=== PATIENT | male | born 1955 | race Caucasian/White ===

== ENCOUNTER 2019-04-04 08:52 | Inpatient (IN) | payer OTHER ==
[~2019-04-04] VITALS: Ht 185.4 cm; Wt 65.3 kg
--- NOTE | 2019-04-04 09:09 | NUR ---
PT BIB [facility] FOR ABD PAIN SINCE YESTERDAY AND [facility] LAST NIGHT. PT WITH INCREASING WEAKNESS FOR 2 WEEKS. PT STARTED LISINOPRIL 2 WEEKS AGO. PT PLACED IN ROOM AND PLACED ON BP, CARDIAC AND CONT. PULSE OXIMETER. ASSESSMENT COMPLETED. PT A&OX4. AT BEDSIDE. AWAITING MD.
[2019-04-04] MEDS ORDERED: LISI-167 PO (09:11)
--- NOTE | 2019-04-04 09:23 | NUR ---
REPORT GIVEN TO CRISTINA BOB
[2019-04-04 10:05] LABS: BASOPHILS # (AUTO) 0.03 x10^3/uL (0-0.1); BASOPHILS % (AUTO) 0 % (0-1); EOSINOPHILS # (AUTO) 0.03 x10^3/uL (0-0.4); EOSINOPHILS % (AUTO) 0 % (1-7); LYMPHOCYTES # (AUTO) 1.13 x10^3/uL (1-3.4); LYMPHOCYTES % (AUTO) 13 % (22-44); MD NO; MEAN CORPUSCULAR HEMOGLOBIN 31.2 pg (27.5-34.5); MEAN CORPUSCULAR HGB CONC 34.3 g/dL (33.2-36.2); MEAN CORPUSCULAR VOLUME 90.8 fL (81-97); MEAN PLATELET VOLUME 7.4 fL (7.4-10.4); MONOCYTES # (AUTO) 0.77 x10^3/uL (0.2-0.8); MONOCYTES % (AUTO) 9 % (2-9); NEUTROPHILS # (AUTO) 6.73 x10^3/uL (1.8-6.8); NEUTROPHILS % (AUTO) 78 % (42-75); PLATELET COUNT 332 x10^3/uL (130-400); RED BLOOD COUNT 5.28 x10^6/uL (4.38-5.82); RED CELL DISTRIBUTION WIDTH 13.6 % (9.4-14.8)
[2019-04-04 10:17] LABS: ALANINE AMINOTRANSFERASE 24 U/L (12-78); ALBUMIN 3.7 g/dL (3.4-5.0); ANION GAP 9 mmol/L (5-15); CALCIUM 9.7 mg/dL (8.5-10.1); CHLORIDE 85 mmol/L (98-107); CREATININE 1.14 mg/dL (0.7-1.3)
[2019-04-04 10:19] LABS: ALKALINE PHOSPHATASE 110 U/L (45-117); BILIRUBIN,TOTAL 0.9 mg/dL (0.2-1.0); TOTAL PROTEIN 8.1 g/dL (6.4-8.2)
--- NOTE | 2019-04-04 10:25 | NUR ---
URINE SENT TO LAB. LABELED IN PATIENTS PRESENCE. PATIENT HAS RED WEEPY EYES LIKE PINK EYE. PATIENT IN BED, RAILS UP AWAITING ADMISSION
[2019-04-04] MEDS ORDERED: POTASSIUM CHLORIDE 20 MEQ TAB.ER.PRT ONE (10:59)
[2019-04-04 11:00] LABS: MICROSCOPIC INDICATED
[2019-04-04] MEDS ORDERED: POTASSIUM CHLORIDE 20 MEQ TAB.ER.PRT PO ONE (11:00)
[2019-04-04] MEDS ORDERED: SODIUM CHLORIDE 0.9%, 500ML IVBOLUS ONE (11:00)
[2019-04-04 11:01] LABS: CULTURE INDICATED? NO
--- NOTE | 2019-04-04 11:04 | NUR ---
REPOSITIONED PATIENT IN BED. HE IS AWAITING ADMISSION.
--- NOTE | 2019-04-04 11:09 | NUR ---
[facility]
[2019-04-04 12:30] VITALS: BP 207/106
[2019-04-04] MEDS: hydrALAzine 20 MG/ML, 1ML IV PRN (12:43)
[2019-04-04 12:50] VITALS: BP 207/106
[2019-04-04 13:45] VITALS: BP 180/91
[2019-04-04] MEDS ORDERED: ONDANSETRON 2MG/ML, 2ML IVPush PRN ×2 (14:00→16:00)
[2019-04-04] MEDS ORDERED: LORazepam 0.5MG TABLET PO PRN (16:00)
[2019-04-04] MEDS ORDERED: LORazepam 1MG TABLET PO PRN ×4 (16:00)
[2019-04-04] MEDS: NICOTINE 14MG/24 HR PATCH.TD24 TD SCH (16:00)
[2019-04-04] MEDS ORDERED: OXYcodone IR 5MG TABLET PO PRN (16:00)
[2019-04-04] MEDS ORDERED: hydrALAzine 20 MG/ML, 1ML IVPush PRN (16:00)
[2019-04-04] MEDS ORDERED: LORazepam 2 MG/ML, 1ML IV PRN ×5 (16:00)
[2019-04-04] MEDS ORDERED: morphine SULFATE 10 MG/ML, 1ML IVPush PRN (16:00)
[2019-04-04] MEDS ORDERED: POLYETHYLENE GLYCOL 17 GM PACKET PO PRN (16:00)
[2019-04-04] MEDS ORDERED: BISACODYL 10 MG SUPP PR PRN (16:00)
[2019-04-04] MEDS ORDERED: PROMETHAZINE 25 MG/ML, 1ML IM PRN (16:00)
[2019-04-04] MEDS ORDERED: ONDANSETRON ODT 4 MG PO PRN (16:00)
[2019-04-04] MEDS ORDERED: DOCUSATE 100 MG CAPSULE PO PRN (16:00)
[2019-04-04] MEDS ORDERED: POTASSIUM CHLORIDE 40 MEQ in SODIUM CHLORIDE 0.9% 500 ML IV ONE (16:30)
[2019-04-04 16:37] LABS: FREE T4 (FREE THYROXINE) 1.19 ng/dL (0.76-1.46); THYROID STIMULATING HORMONE 1.73 mIU/L (0.358-3.740)
[2019-04-04] MEDS: LACTATED RINGERS 1,000 ML IV SCH (16:38)
[2019-04-04] MEDS: PANTOPRAZOLE 40 MG IV IVPush SCH (16:44)
[2019-04-04] MEDS: MULTIVITAMIN 1 TABLET PO SCH (16:44)
[2019-04-04] MEDS: LOSARTAN 50MG TABLET PO SCH (16:44)
[2019-04-04] MEDS: THIAMINE 100MG TABLET PO SCH (16:44)
[2019-04-04] MEDS: FOLIC ACID 1 MG TABLET PO SCH (16:44)
[2019-04-04 16:49] LABS: HEMOGLOBIN A1C 5.2 % (4.2-6.3)
[2019-04-04] MEDS: CARVEDILOL 6.25 MG TABLET PO SCH (18:00)
[2019-04-04 20:03] VITALS: BP 163/91
[2019-04-05] VITALS (7 sets, daily range): BP systolic 152–195; BP diastolic 77–114
[2019-04-05] MEDS: LACTATED RINGERS 1,000 ML IV SCH (04:22)
[2019-04-05] MEDS: CARVEDILOL 6.25 MG TABLET PO SCH ×2 (04:22→18:07)
[2019-04-05] MEDS: PANTOPRAZOLE 40 MG IV IVPush SCH ×2 (04:22→16:53)
[2019-04-05 05:35] LABS: CHLORIDE 96 mmol/L (98-107)
[2019-04-05 05:40] LABS: BASOPHILS # (AUTO) 0.02 x10^3/uL (0-0.1); BASOPHILS % (AUTO) 0 % (0-1); EOSINOPHILS # (AUTO) 0.05 x10^3/uL (0-0.4); EOSINOPHILS % (AUTO) 1 % (1-7); LYMPHOCYTES # (AUTO) 1.87 x10^3/uL (1-3.4); LYMPHOCYTES % (AUTO) 23 % (22-44); MD NO; MEAN CORPUSCULAR HEMOGLOBIN 30.8 pg (27.5-34.5); MEAN CORPUSCULAR VOLUME 90.6 fL (81-97); MEAN PLATELET VOLUME 7.4 fL (7.4-10.4); MONOCYTES % (AUTO) 11 % (2-9); NEUTROPHILS # (AUTO) 5.37 x10^3/uL (1.8-6.8); NEUTROPHILS % (AUTO) 65 % (42-75); PLATELET COUNT 286 x10^3/uL (130-400); RED BLOOD COUNT 4.76 x10^6/uL (4.38-5.82); RED CELL DISTRIBUTION WIDTH 13.4 % (9.4-14.8)
[2019-04-05 05:41] LABS: ALANINE AMINOTRANSFERASE 17 U/L (12-78); ALBUMIN 3.2 g/dL (3.4-5.0); ALKALINE PHOSPHATASE 84 U/L (45-117); ANION GAP 9 mmol/L (5-15); BILIRUBIN,TOTAL 0.7 mg/dL (0.2-1.0); CALCIUM 8.9 mg/dL (8.5-10.1); CHOL/HDL RATIO 2.5; CHOLESTEROL, TOTAL 117 mg/dL (140-239); CREATININE 1.07 mg/dL (0.7-1.3); HDL CHOL % 40 % (26-37); HDL CHOLESTEROL (DIRECT) 47 mg/dL (40-60); LDL CHOLESTEROL,CALCULATED 55 mg/dL (54-169); LDL/HDL RATIO 1.2 (0.5-3.0); TOTAL PROTEIN 6.8 g/dL (6.4-8.2); TRIGLYCERIDES 76 mg/dL (50-200); VLDL CHOLESTEROL 15 mg/dL (0-25)
[2019-04-05] MEDS ORDERED: POTASSIUM CHLORIDE 40 MEQ in SODIUM CHLORIDE 0.9% 500 ML IV ONE (07:00)
[2019-04-05] MEDS: LOSARTAN 50MG TABLET PO SCH (08:01)
[2019-04-05] MEDS: FOLIC ACID 1 MG TABLET PO SCH (08:01)
[2019-04-05] MEDS: MULTIVITAMIN 1 TABLET PO SCH (08:01)
[2019-04-05] MEDS: THIAMINE 100MG TABLET PO SCH (08:01)
[2019-04-05] MEDS: NICOTINE 14MG/24 HR PATCH.TD24 TD SCH (11:38)
[2019-04-05 12:41] LABS: MICROSCOPIC NOT IND
[2019-04-05 12:44] LABS: CULTURE INDICATED? NO
[2019-04-05 12:49] LABS: CHLORIDE,URINE RANDOM 113 mmol/L; POTASSIUM,URINE RANDOM 36 mmol/L; SODIUM,URINE RANDOM 95 mmol/L
[2019-04-05] MEDS: hydrALAzine 20 MG/ML, 1ML IV PRN ×2 (13:06→23:05)
[2019-04-05 13:37] LABS: OSMOLALITY,URINE 411 mOsm/kg (500-850)
[2019-04-05] MEDS ORDERED: MAGNESIUM SULFATE 3 GM in SODIUM CHLORIDE 0.9% 100 ML IV ONE (15:30)
[2019-04-05] MEDS ORDERED: LOSARTAN 50MG TABLET PO ONE (15:30)
[2019-04-05] MEDS ORDERED: DEXTROSE 50%, 50ML SYRINGE IVPush PRN (15:30)
[2019-04-05] MEDS ORDERED: DEXTROSE 4 GM TAB.CHEW PO PRN (15:30)
[2019-04-05] MEDS ORDERED: GLUCAGON 1 MG IM PRN (15:30)
[2019-04-05] MEDS: LABETALOL 5MG/ML, 20ML IVPush PRN ×2 (15:31→18:14)
[2019-04-05] MEDS: POTASSIUM CHLORIDE 10 MEQ in D5%-0.9% NACL 1,000 ML IV SCH (16:53)
[2019-04-05] MEDS: SODIUM CHLORIDE FLUSH 10ML SYR IVF SCH (22:59)
[2019-04-06] VITALS (8 sets, daily range): BP systolic 131–179; BP diastolic 68–94
[2019-04-06] MEDS: POTASSIUM CHLORIDE 10 MEQ in D5%-0.9% NACL 1,000 ML IV SCH (00:34)
[2019-04-06] MEDS: PANTOPRAZOLE 40 MG IV IVPush SCH ×2 (04:19→16:41)
[2019-04-06 06:13] LABS: CHLORIDE 102 mmol/L (98-107)
[2019-04-06] MEDS: CARVEDILOL 6.25 MG TABLET PO SCH (06:16)
[2019-04-06 06:50] LABS: ALBUMIN 2.6 g/dL (3.4-5.0); ANION GAP 9 mmol/L (5-15); CALCIUM 8.2 mg/dL (8.5-10.1); CREATININE 0.87 mg/dL (0.7-1.3)
[2019-04-06] MEDS: THIAMINE 100MG TABLET PO SCH (08:33)
[2019-04-06] MEDS: MULTIVITAMIN 1 TABLET PO SCH (08:33)
[2019-04-06] MEDS: FOLIC ACID 1 MG TABLET PO SCH (08:34)
[2019-04-06] MEDS: LOSARTAN 50MG TABLET PO SCH (08:34)
[2019-04-06] MEDS: SODIUM CHLORIDE FLUSH 10ML SYR IVF SCH ×2 (08:34→21:00)
[2019-04-06] MEDS: SODIUM CHLORIDE 0.9% 1,000 ML IV SCH ×2 (08:35→21:44)
[2019-04-06] MEDS: NICOTINE 14MG/24 HR PATCH.TD24 TD SCH (12:33)
[2019-04-06] MEDS: hydrALAzine 20 MG/ML, 1ML IV PRN (16:42)
[2019-04-06] MEDS: CARVEDILOL 3.125 MG TABLET PO SCH (16:43)
[2019-04-07] VITALS (9 sets, daily range): BP systolic 123–183; BP diastolic 74–99
[2019-04-07] MEDS: PANTOPRAZOLE 40 MG IV IVPush SCH ×2 (05:41→15:14)
[2019-04-07] MEDS: CARVEDILOL 3.125 MG TABLET PO SCH ×2 (05:46→17:09)
[2019-04-07 06:43] LABS: ALBUMIN 2.8 g/dL (3.4-5.0); ANION GAP 7 mmol/L (5-15); CALCIUM 8.4 mg/dL (8.5-10.1); CHLORIDE 102 mmol/L (98-107)
[2019-04-07 06:44] LABS: CREATININE 0.99 mg/dL (0.7-1.3)
[2019-04-07] MEDS ORDERED: POTASSIUM CHLORIDE 20 MEQ TAB.ER.PRT PO ONE (07:30)
[2019-04-07] MEDS: MULTIVITAMIN 1 TABLET PO SCH (08:21)
[2019-04-07] MEDS: THIAMINE 100MG TABLET PO SCH (08:22)
[2019-04-07] MEDS: FOLIC ACID 1 MG TABLET PO SCH (08:22)
[2019-04-07] MEDS: LOSARTAN 50MG TABLET PO SCH (08:22)
[2019-04-07] MEDS: SODIUM CHLORIDE FLUSH 10ML SYR IVF SCH ×2 (08:22→20:22)
[2019-04-07] MEDS: hydrALAzine 20 MG/ML, 1ML IV PRN (10:01)
[2019-04-07] MEDS: NICOTINE 14MG/24 HR PATCH.TD24 TD SCH (15:14)
[2019-04-07 15:20] LABS: ALBUMIN 3.4 g/dL (3.4-5.0); ANION GAP 6 mmol/L (5-15); CALCIUM 8.8 mg/dL (8.5-10.1); CHLORIDE 101 mmol/L (98-107); CREATININE 1.12 mg/dL (0.7-1.3)
[2019-04-08 02:00] VITALS: BP 165/92
[2019-04-08 05:48] VITALS: BP 177/98
[2019-04-08] MEDS: CARVEDILOL 3.125 MG TABLET PO SCH (05:49)
[2019-04-08] MEDS ORDERED: PANTOPROZOLE 40MG TABLET PO SCH (06:00)
[2019-04-08 06:42] VITALS: BP 173/89
[2019-04-08 07:16] VITALS: BP 175/87
[2019-04-08 08:19] LABS: ALBUMIN 3.1 g/dL (3.4-5.0); ANION GAP 5 mmol/L (5-15); CALCIUM 8.9 mg/dL (8.5-10.1); CHLORIDE 104 mmol/L (98-107)
[2019-04-08 08:22] LABS: CREATININE 1.03 mg/dL (0.7-1.3)
[2019-04-08] MEDS: THIAMINE 100MG TABLET PO SCH (08:51)
[2019-04-08] MEDS: MULTIVITAMIN 1 TABLET PO SCH (08:51)
[2019-04-08] MEDS: FOLIC ACID 1 MG TABLET PO SCH (08:51)
[2019-04-08] MEDS: SODIUM CHLORIDE FLUSH 10ML SYR IVF SCH (08:51)
[2019-04-08] MEDS ORDERED: LOSARTAN 50MG TABLET PO SCH (09:00)
[2019-04-08 13:41] VITALS: BP 155/79
[2019-04-08] MEDS: NICOTINE 14MG/24 HR PATCH.TD24 TD SCH (15:00)
[2019-04-08] MEDS ORDERED: CARV3.1212 PO (15:10)
[2019-04-08] MEDS ORDERED: LOSA50TA14 PO (15:10)
[2019-04-08] MEDS ORDERED: THIA100T67 PO (15:10)
[2019-04-08] MEDS ORDERED: NICO-486 TD (15:10)
[2019-04-08] MEDS ORDERED: HYDR-3343 PO (15:10)
[2019-04-08] MEDS ORDERED: FOLI-17 PO (15:10)
== END 2019-04-08 16:45 | disposition home or self-care (01) | DRG 388 ==
LOC: ED 10:35 → EDIP 10:38 → 4EST 12:37 → DCLOUNGE 04-08 16:26
PROVIDERS: ADMIT Internal Medicine; ATTEND Internal Medicine
DX: K56.7 Ileus, unspecified (principal); K85.90 Acute pancreatitis without necrosis or infection, unspecified; E87.1 Hypo-osmolality and hyponatremia; E83.42 Hypomagnesemia; E87.6 Hypokalemia; F10.10 Alcohol abuse, uncomplicated; W18.30XA Fall on same level, unspecified, initial encounter; F17.210 Nicotine dependence, cigarettes, uncomplicated; I10 Essential (primary) hypertension; I16.0 Hypertensive urgency; K29.20 Alcoholic gastritis without bleeding; Z79.899 Other long term (current) drug therapy; Y93.89 Activity, other specified; Y92.89 Other specified places as the place of occurrence of the external cause
CPT/HCPCS: 36415; 74022; 99285; J7042; 76700; 80048; 80053; 80061; 81001; 81003; 82040; 82436; 82962; 83036; 83690; 83735; 83930; 83935; 84133; 84300; 84439; 84443; 85025; 93005; 93306; G0378; J3475; J3480; C9113; J0360; J7030; J7040; J7120

== ENCOUNTER 2019-04-21 16:50 | Inpatient (IN) | payer OTHER ==
[~2019-04-21] VITALS: Ht 185.4 cm; Wt 64.0 kg
[~2019-04-21 16:50] MED LIST: CARV3.1212 PO; FOLI-17 PO; HYDR-3343 PO; LISI-167 PO; LOSA50TA14 PO; NICO-486 TD; THIA100T67 PO
[2019-04-21] MEDS ORDERED: losartan (17:02)
--- NOTE | 2019-04-21 17:08 | NUR ---
pt bib [facility] for fever, chills and weakness starting yesterday. pt recently seen and admitted for pancreatits and htn. pt also states has an oral infection and is scheduled for oral surgery to remove teeth on 05/11/2019. no abx. iv established en route. pt connected to monitors. tachy 100s, htn 183/94, 86% ra, placed on 4lnc with recovery to 96%, temp 103.1. awaiting edmd assessment.
--- NOTE | 2019-04-21 17:25 | NUR ---
EDMD TO BS FOR ASSESSMENT.
[2019-04-21] MEDS ORDERED: IBUPROFEN 200 MG TABLET ONE (17:51)
[2019-04-21 17:55] LABS: MEAN CORPUSCULAR HEMOGLOBIN 30.2 pg (27.5-34.5); MEAN CORPUSCULAR HGB CONC 33.2 g/dL (33.2-36.2); MEAN CORPUSCULAR VOLUME 91.1 fL (81-97); MEAN PLATELET VOLUME 6.8 fL (7.4-10.4); PLATELET COUNT 210 x10^3/uL (130-400); RED BLOOD COUNT 4.81 x10^6/uL (4.38-5.82); RED CELL DISTRIBUTION WIDTH 14.1 % (9.4-14.8)
[2019-04-21] MEDS ORDERED: SODIUM CHLORIDE 0.9% 1,000ML IVBOLUS ONE (18:00)
[2019-04-21] MEDS ORDERED: IBUPROFEN 200 MG TABLET PO ONE (18:00)
--- NOTE | 2019-04-21 18:05 | NUR ---
pt resting in [facility]. vss. ua collected an sent. pt medicated per jan. lab draw complete. awaiting results. no needs expressed. call light wihtin mark.
[2019-04-21 18:09] LABS: ALANINE AMINOTRANSFERASE 161 U/L (12-78); ALBUMIN 3.5 g/dL (3.4-5.0); ANION GAP 14 mmol/L (5-15); CALCIUM 8.5 mg/dL (8.5-10.1); CHLORIDE 96 mmol/L (98-107); CREATININE 1.09 mg/dL (0.7-1.3)
[2019-04-21 18:11] LABS: ALKALINE PHOSPHATASE 218 U/L (45-117); BILIRUBIN,TOTAL 0.8 mg/dL (0.2-1.0); TOTAL PROTEIN 7.5 g/dL (6.4-8.2)
[2019-04-21 18:25] LABS: CULTURE INDICATED? YES; MICROSCOPIC INDICATED
[2019-04-21] MEDS ORDERED: SODIUM CHLORIDE FLUSH 10ML SYR IVF ONE (18:30)
[2019-04-21 18:49] LABS: MD YES
[2019-04-21 18:52] LABS: BAND#(MANUAL) 0.51 x10^3/uL; BANDS%(MANUAL) 10 % (0-7); EOS#(MANUAL) 0.05 x10^3/uL (0.0-0.4); EOS% (MANUAL) 1 % (1-7); LYMPH#(MANUAL) 0.46 x10^3/uL (1-3.4); LYMPHS% (MANUAL) 9 % (22-44); SEG#(MANUAL) 3.83 x10^3/uL (1.8-6.8); SEGS% (MANUAL) 75 % (42-75)
[2019-04-21 18:55] LABS: <PLATELET ESTIMATE> ADEQUATE; <PLT MORPHOLOGY> NORMAL PLT MORPH; <RBC MORPHOLOGY> NORMAL
[2019-04-21 18:56] LABS: MONOS#(MANUAL) 0.15 x10^3/uL (0.3-2.7); MONOS% (MANUAL) 3 % (2-9)
[2019-04-21 18:57] LABS: OTHER CELLS % (MANUAL) 2 % (0-0)
[2019-04-21] MEDS ORDERED: CEFTRIAXONE PMX 1GM/50ML 50 ML IVPB ONE (19:00)
--- NOTE | 2019-04-21 19:03 | NUR ---
report received from cintia haas.
--- NOTE | 2019-04-21 19:08 | NUR ---
REPORT TO LISBETH LOPEZ. PER PT'S AT , PT HAS NOT HAD 1700 HOME HTN MEDICATIONS. EDMD NOTIFIED. HTN MEDICATION ORDERS RECEIVED. NO OTHER REQUESTS AT THIS TIME.
[2019-04-21] MEDS ORDERED: hydrALAzine 20 MG/ML, 1ML ONE (19:11)
[2019-04-21] MEDS ORDERED: CEFTRIAXONE PMX 1GM/50ML 50 ML ONE (19:19)
--- NOTE | 2019-04-21 19:29 | NUR ---
pt medicated per emar. pt tolerated well. pt's aox4. resps even and unlabored.
[2019-04-21] MEDS ORDERED: hydrALAzine 20 MG/ML, 1ML IV ONE (19:30)
--- NOTE | 2019-04-21 19:48 | NUR ---
pt's bp is 137/72 at this time.
[2019-04-21] MEDS ORDERED: SODIUM CHLORIDE 0.9% 1,000 ML IV ONE (19:49)
[2019-04-21] MEDS ORDERED: ONDANSETRON ODT 4 MG PO PRN (20:00)
[2019-04-21] MEDS ORDERED: ACETAMINOPHEN 325 MG TABLET PO PRN (20:00)
[2019-04-21] MEDS ORDERED: VANCOMYCIN PER PHARMACY MC PRN (20:00)
[2019-04-21] MEDS ORDERED: POLYETHYLENE GLYCOL 17 GM PACKET PO PRN (20:00)
[2019-04-21] MEDS ORDERED: BISACODYL 10 MG SUPP PR PRN (20:00)
[2019-04-21] MEDS ORDERED: SODIUM CHLORIDE FLUSH 10ML SYR IVF PRN (20:00)
[2019-04-21] MEDS ORDERED: OMNIPAQUE 350 MG/ML, 100ML BOTTLE ONE (20:13)
--- NOTE | 2019-04-21 20:19 | NUR ---
REPORT GIVEN TO LUIGI BOB. ALL QUESTIONS ANSWERED.
[2019-04-21] MEDS ORDERED: PHARMACOKINETIC MONITORING MC PRN (21:00)
[2019-04-21] MEDS ORDERED: PHARMACOKINETIC CONSULTATION MC ONE (21:00)
[2019-04-21] MEDS ORDERED: VANCOMYCIN 1,300 MG in SODIUM CHLORIDE 0.9% 250 ML IV SCH (21:00)
[2019-04-21 22:13] VITALS: BP 126/68
[2019-04-21] MEDS: LOSARTAN 50MG TABLET PO SCH (22:55)
[2019-04-21] MEDS: PIPERACILLIN/TAZO/PMX 3.375GM 50 ML IV SCH (22:55)
[2019-04-21] MEDS: NICOTINE 21 MG/24 HR PATCH.TD24 TD SCH (22:56)
[2019-04-21] MEDS: HEPARIN 5,000 UNITS/ML, 1ML SQ SCH (22:56)
[2019-04-21] MEDS: NS + 20MEQ KCL 1,000 ML IV SCH (23:11)
[2019-04-22 03:41] VITALS: BP 119/72
[2019-04-22 05:07] LABS: MEAN CORPUSCULAR HEMOGLOBIN 30.3 pg (27.5-34.5); MEAN CORPUSCULAR HGB CONC 33.3 g/dL (33.2-36.2); MEAN CORPUSCULAR VOLUME 90.8 fL (81-97); PLATELET COUNT 189 x10^3/uL (130-400); RED BLOOD COUNT 4.16 x10^6/uL (4.38-5.82); RED CELL DISTRIBUTION WIDTH 14.1 % (9.4-14.8)
[2019-04-22 05:13] LABS: CHLORIDE 101 mmol/L (98-107)
[2019-04-22] MEDS: NS + 20MEQ KCL 1,000 ML IV SCH ×3 (05:14→22:53)
[2019-04-22] MEDS: PIPERACILLIN/TAZO/PMX 3.375GM 50 ML IV SCH ×4 (05:14→22:53)
[2019-04-22] MEDS: CARVEDILOL 3.125 MG TABLET PO SCH ×2 (05:14→17:35)
[2019-04-22 05:21] LABS: ALANINE AMINOTRANSFERASE 124 U/L (12-78); ALBUMIN 2.8 g/dL (3.4-5.0); ALKALINE PHOSPHATASE 189 U/L (45-117); ANION GAP 7 mmol/L (5-15); BILIRUBIN,TOTAL 0.9 mg/dL (0.2-1.0); CALCIUM 7.7 mg/dL (8.5-10.1); CREATININE 1.02 mg/dL (0.7-1.3); TOTAL PROTEIN 6.2 g/dL (6.4-8.2)
[2019-04-22 05:40] LABS: MD YES
[2019-04-22 05:42] LABS: BAND#(MANUAL) 0.31 x10^3/uL; BANDS%(MANUAL) 8 % (0-7); EOS#(MANUAL) 0.04 x10^3/uL (0.0-0.4); EOS% (MANUAL) 1 % (1-7); LYMPH#(MANUAL) 0.39 x10^3/uL (1-3.4); LYMPHS% (MANUAL) 10 % (22-44); MONOS% (MANUAL) 5 % (2-9); SEG#(MANUAL) 2.96 x10^3/uL (1.8-6.8); SEGS% (MANUAL) 76 % (42-75)
[2019-04-22 05:43] LABS: <PLATELET ESTIMATE> ADEQUATE; <PLT MORPHOLOGY> NORMAL PLT MORPH; <RBC MORPHOLOGY> NORMAL
[2019-04-22] MEDS: HEPARIN 5,000 UNITS/ML, 1ML SQ SCH ×3 (06:43→23:07)
[2019-04-22] MEDS ORDERED: POTASSIUM CHLORIDE 20 MEQ TAB.ER.PRT PO ONE (07:00)
[2019-04-22 08:21] VITALS: BP 125/75
[2019-04-22] MEDS: SENNA/DOCUSATE TABLET PO SCH (08:23)
[2019-04-22] MEDS: FOLIC ACID 1 MG TABLET PO SCH (08:23)
[2019-04-22] MEDS: THIAMINE 100MG TABLET PO SCH (08:23)
[2019-04-22] MEDS: LOSARTAN 50MG TABLET PO SCH ×2 (08:23→20:05)
[2019-04-22 14:00] VITALS: BP 159/78
[2019-04-22] MEDS ORDERED: VANCOMYCIN 1,200 MG in SODIUM CHLORIDE 0.9% 250 ML IV SCH (15:00)
[2019-04-22 17:33] VITALS: BP 165/94
[2019-04-22] MEDS: NICOTINE 21 MG/24 HR PATCH.TD24 TD SCH (20:06)
[2019-04-22 20:21] VITALS: BP_SYST 177; BP_SYST 178; BP_DIAS 93; BP_DIAS 96
[2019-04-23] VITALS (10 sets, daily range): BP systolic 143–198; BP diastolic 82–102
[2019-04-23] MEDS: PIPERACILLIN/TAZO/PMX 3.375GM 50 ML IV SCH ×4 (05:04→23:45)
[2019-04-23 05:14] LABS: BASOPHILS # (AUTO) 0.01 x10^3/uL (0-0.1); BASOPHILS % (AUTO) 0 % (0-1); EOSINOPHILS # (AUTO) 0.08 x10^3/uL (0-0.4); EOSINOPHILS % (AUTO) 2 % (1-7); LYMPHOCYTES # (AUTO) 0.76 x10^3/uL (1-3.4); LYMPHOCYTES % (AUTO) 14 % (22-44); MD NO; MEAN CORPUSCULAR HEMOGLOBIN 29.9 pg (27.5-34.5); MEAN CORPUSCULAR HGB CONC 32.9 g/dL (33.2-36.2); MEAN CORPUSCULAR VOLUME 90.9 fL (81-97); MEAN PLATELET VOLUME 7.2 fL (7.4-10.4); MONOCYTES % (AUTO) 11 % (2-9); NEUTROPHILS # (AUTO) 3.93 x10^3/uL (1.8-6.8); NEUTROPHILS % (AUTO) 73 % (42-75); PLATELET COUNT 233 x10^3/uL (130-400); RED BLOOD COUNT 4.52 x10^6/uL (4.38-5.82); RED CELL DISTRIBUTION WIDTH 14.1 % (9.4-14.8)
[2019-04-23 05:16] LABS: ALANINE AMINOTRANSFERASE 103 U/L (12-78); ALBUMIN 2.9 g/dL (3.4-5.0); ANION GAP 8 mmol/L (5-15); CALCIUM 8.3 mg/dL (8.5-10.1); CHLORIDE 104 mmol/L (98-107); CREATININE 0.91 mg/dL (0.7-1.3)
[2019-04-23 05:19] LABS: ALKALINE PHOSPHATASE 207 U/L (45-117); BILIRUBIN,TOTAL 1.2 mg/dL (0.2-1.0); TOTAL PROTEIN 6.6 g/dL (6.4-8.2)
[2019-04-23] MEDS: CARVEDILOL 3.125 MG TABLET PO SCH (06:26)
[2019-04-23] MEDS: NS + 20MEQ KCL 1,000 ML IV SCH (06:26)
[2019-04-23] MEDS: LOSARTAN 50MG TABLET PO SCH ×2 (08:01→20:51)
[2019-04-23] MEDS: THIAMINE 100MG TABLET PO SCH (08:01)
[2019-04-23] MEDS: FOLIC ACID 1 MG TABLET PO SCH (08:02)
[2019-04-23] MEDS: SENNA/DOCUSATE TABLET PO SCH (08:02)
[2019-04-23] MEDS: HEPARIN 5,000 UNITS/ML, 1ML SQ SCH ×3 (08:02→23:00)
[2019-04-23] MEDS: hydrALAzine 20 MG/ML, 1ML IV PRN ×2 (09:25→16:28)
[2019-04-23] MEDS ORDERED: AMLODIPINE 5 MG TABLET PO SCH (15:30)
[2019-04-23] MEDS: CARVEDILOL 6.25 MG TABLET PO SCH (17:32)
[2019-04-23] MEDS ORDERED: OMNIPAQUE 350 MG/ML, 100ML BOTTLE ONE (17:42)
[2019-04-23] MEDS ORDERED: CARVEDILOL 3.125 MG TABLET PO SCH (18:00)
[2019-04-23] MEDS ORDERED: LORazepam 2 MG/ML, 1ML IV PRN ×5 (20:00)
[2019-04-23] MEDS ORDERED: LORazepam 0.5MG TABLET PO PRN (20:00)
[2019-04-23] MEDS ORDERED: LORazepam 1MG TABLET PO PRN ×4 (20:00)
[2019-04-23] MEDS: NICOTINE 21 MG/24 HR PATCH.TD24 TD SCH (20:52)
[2019-04-24 00:30] VITALS: BP 148/80
[2019-04-24 05:13] LABS: MEAN CORPUSCULAR HEMOGLOBIN 30.3 pg (27.5-34.5); MEAN CORPUSCULAR HGB CONC 33.5 g/dL (33.2-36.2); MEAN CORPUSCULAR VOLUME 90.6 fL (81-97); MEAN PLATELET VOLUME 7.7 fL (7.4-10.4); PLATELET COUNT 234 x10^3/uL (130-400); RED BLOOD COUNT 4.48 x10^6/uL (4.38-5.82); RED CELL DISTRIBUTION WIDTH 14.1 % (9.4-14.8)
[2019-04-24 05:14] LABS: ALBUMIN 2.6 g/dL (3.4-5.0); ANION GAP 9 mmol/L (5-15); CALCIUM 8.1 mg/dL (8.5-10.1); CHLORIDE 100 mmol/L (98-107)
[2019-04-24 05:20] LABS: ALANINE AMINOTRANSFERASE 74 U/L (12-78); ALKALINE PHOSPHATASE 197 U/L (45-117); TOTAL PROTEIN 6.5 g/dL (6.4-8.2)
[2019-04-24] MEDS: PIPERACILLIN/TAZO/PMX 3.375GM 50 ML IV SCH ×4 (05:33→23:22)
[2019-04-24] MEDS: CARVEDILOL 6.25 MG TABLET PO SCH ×2 (06:00→17:20)
[2019-04-24 06:14] LABS: MD YES
[2019-04-24 06:17] LABS: <PLATELET ESTIMATE> ADEQUATE; <PLT MORPHOLOGY> NORMAL PLT MORPH; <RBC MORPHOLOGY> NORMAL; BANDS%(MANUAL) 6 % (0-7); EOS#(MANUAL) 0.08 x10^3/uL (0.0-0.4); EOS% (MANUAL) 1 % (1-7); LYMPH#(MANUAL) 0.33 x10^3/uL (1-3.4); LYMPHS% (MANUAL) 4 % (22-44); MONOS#(MANUAL) 0.33 x10^3/uL (0.3-2.7); MONOS% (MANUAL) 4 % (2-9); SEG#(MANUAL) 7.06 x10^3/uL (1.8-6.8); SEGS% (MANUAL) 85 % (42-75)
[2019-04-24 06:56] VITALS: BP 168/75
[2019-04-24] MEDS: HEPARIN 5,000 UNITS/ML, 1ML SQ SCH ×3 (07:00→20:36)
[2019-04-24] MEDS: SENNA/DOCUSATE TABLET PO SCH (09:00)
[2019-04-24] MEDS ORDERED: SINCALIDE (KINEVAC) 5 MCG ONE (09:11)
[2019-04-24] MEDS ORDERED: POTASSIUM CHLORIDE 20 MEQ TAB.ER.PRT PO ONE (09:30)
[2019-04-24] MEDS: LOSARTAN 50MG TABLET PO SCH ×2 (11:31→20:36)
[2019-04-24] MEDS: THIAMINE 100MG TABLET PO SCH (11:31)
[2019-04-24] MEDS: MULTIVITAMINS/MINERALS TABLET PO SCH (11:31)
[2019-04-24] MEDS: FOLIC ACID 1 MG TABLET PO SCH (11:32)
[2019-04-24 13:19] VITALS: BP 127/80
[2019-04-24 19:45] VITALS: BP 117/65
[2019-04-24] MEDS: NICOTINE 21 MG/24 HR PATCH.TD24 TD SCH (20:36)
[2019-04-25 01:45] VITALS: BP 151/70
[2019-04-25 05:04] LABS: MEAN CORPUSCULAR HEMOGLOBIN 30.2 pg (27.5-34.5); MEAN CORPUSCULAR HGB CONC 33.6 g/dL (33.2-36.2); MEAN CORPUSCULAR VOLUME 89.9 fL (81-97); MEAN PLATELET VOLUME 7.8 fL (7.4-10.4); PLATELET COUNT 234 x10^3/uL (130-400); RED BLOOD COUNT 4.19 x10^6/uL (4.38-5.82); RED CELL DISTRIBUTION WIDTH 14.3 % (9.4-14.8)
[2019-04-25 05:18] LABS: ALBUMIN 2.5 g/dL (3.4-5.0); ANION GAP 11 mmol/L (5-15); CALCIUM 8.2 mg/dL (8.5-10.1); CHLORIDE 102 mmol/L (98-107)
[2019-04-25 05:22] LABS: ALANINE AMINOTRANSFERASE 68 U/L (12-78); ALKALINE PHOSPHATASE 182 U/L (45-117); BILIRUBIN,TOTAL 1.5 mg/dL (0.2-1.0); CREATININE 1.13 mg/dL (0.7-1.3); TOTAL PROTEIN 6.4 g/dL (6.4-8.2)
[2019-04-25] MEDS: CARVEDILOL 6.25 MG TABLET PO SCH ×2 (05:29→17:02)
[2019-04-25] MEDS: HEPARIN 5,000 UNITS/ML, 1ML SQ SCH ×3 (05:30→21:36)
[2019-04-25] MEDS: PIPERACILLIN/TAZO/PMX 3.375GM 50 ML IV SCH ×3 (05:30→17:02)
[2019-04-25 05:58] LABS: MD YES
[2019-04-25 06:00] LABS: <PLATELET ESTIMATE> ADEQUATE; <PLT MORPHOLOGY> NORMAL PLT MORPH; <RBC MORPHOLOGY> NORMAL; BAND#(MANUAL) 0.69 x10^3/uL; BANDS%(MANUAL) 7 % (0-7); LYMPHS% (MANUAL) 3 % (22-44); MONOS#(MANUAL) 0.59 x10^3/uL (0.3-2.7); MONOS% (MANUAL) 6 % (2-9); SEG#(MANUAL) 8.32 x10^3/uL (1.8-6.8); SEGS% (MANUAL) 84 % (42-75)
[2019-04-25 06:03] LABS: TOXIC GRAN 1+
[2019-04-25 07:00] VITALS: BP 125/73
[2019-04-25] MEDS ORDERED: POTASSIUM CHLORIDE 20 MEQ TAB.ER.PRT PO ONE ×2 (07:30→17:30)
[2019-04-25] MEDS: AMOXICILLIN/CLAV 875-125MG TABLET PO SCH ×2 (08:33→20:09)
[2019-04-25] MEDS: LOSARTAN 50MG TABLET PO SCH ×2 (08:34→20:09)
[2019-04-25] MEDS: FOLIC ACID 1 MG TABLET PO SCH (08:34)
[2019-04-25] MEDS: THIAMINE 100MG TABLET PO SCH (08:34)
[2019-04-25] MEDS: MULTIVITAMINS/MINERALS TABLET PO SCH (08:34)
[2019-04-25] MEDS: SENNA/DOCUSATE TABLET PO SCH (08:54)
[2019-04-25] MEDS ORDERED: MAGNESIUM SULFATE PMX 2GM/50ML 50 ML IV ONE (09:00)
[2019-04-25 12:53] VITALS: BP 114/65
[2019-04-25 19:46] VITALS: BP 115/64
[2019-04-25] MEDS: NICOTINE 21 MG/24 HR PATCH.TD24 TD SCH (20:08)
[2019-04-26 01:18] VITALS: BP 151/71
[2019-04-26] MEDS: HEPARIN 5,000 UNITS/ML, 1ML SQ SCH (05:22)
[2019-04-26] MEDS: CARVEDILOL 6.25 MG TABLET PO SCH (05:22)
[2019-04-26 05:23] LABS: CHLORIDE 103 mmol/L (98-107)
[2019-04-26 05:35] LABS: ALANINE AMINOTRANSFERASE 71 U/L (12-78); ALBUMIN 2.2 g/dL (3.4-5.0); ALKALINE PHOSPHATASE 159 U/L (45-117); ANION GAP 7 mmol/L (5-15); BILIRUBIN,TOTAL 1.3 mg/dL (0.2-1.0); CALCIUM 8.1 mg/dL (8.5-10.1); CREATININE 1.05 mg/dL (0.7-1.3)
[2019-04-26 07:00] VITALS: BP 153/78
[2019-04-26] MEDS: AMOXICILLIN/CLAV 875-125MG TABLET PO SCH (08:05)
[2019-04-26] MEDS: LOSARTAN 50MG TABLET PO SCH (08:05)
[2019-04-26] MEDS: MULTIVITAMINS/MINERALS TABLET PO SCH (08:05)
[2019-04-26] MEDS: THIAMINE 100MG TABLET PO SCH (08:06)
[2019-04-26] MEDS: FOLIC ACID 1 MG TABLET PO SCH (08:06)
[2019-04-26] MEDS: SENNA/DOCUSATE TABLET PO SCH (08:06)
[2019-04-26] MEDS ORDERED: MAGNESIUM OXIDE 400 MG TABLET PO SCH (09:00)
[2019-04-26] MEDS ORDERED: ONDA4TAB13 PO (11:52)
[2019-04-26] MEDS ORDERED: MAGN400T50 PO (11:52)
[2019-04-26] MEDS ORDERED: MULT-484 PO (11:52)
[2019-04-26] MEDS ORDERED: AMOX1TAB12 PO (11:52)
[2019-04-26] MEDS ORDERED: CARV6.2512 PO (11:52)
[2019-04-26] MEDS ORDERED: POTA8CAP PO (11:52)
[2019-04-26] MEDS ORDERED: POTASSIUM CHLORIDE 20 MEQ TAB.ER.PRT PO ONE (12:00)
[2019-04-26] MEDS ORDERED: HYDR-3343 PO (12:04)
== END 2019-04-26 14:25 | disposition home health service (06) | DRG 871 ==
LOC: ED 19:34 → EDIP 19:49 → 3NE 20:35 → DCLOUNGE 04-26 14:19
PROVIDERS: ADMIT Family Medicine; ATTEND Family Medicine
DX: A41.9 Sepsis, unspecified organism (principal); K85.90 Acute pancreatitis without necrosis or infection, unspecified; E87.1 Hypo-osmolality and hyponatremia; E87.6 Hypokalemia; F12.90 Cannabis use, unspecified, uncomplicated; F17.210 Nicotine dependence, cigarettes, uncomplicated; I10 Essential (primary) hypertension; J32.0 Chronic maxillary sinusitis; K01.1 Impacted teeth; K04.7 Periapical abscess without sinus; K05.6 Periodontal disease, unspecified; Z71.6 Tobacco abuse counseling; Z82.49 Family history of ischemic heart disease and other diseases of the circulatory system; Z82.3 Family history of stroke
CPT/HCPCS: 36415; 70487; 71045; 74177; 74181; 78227; 80053; 80074; 81001; 83605; 83690; 83735; 84132; 84145; 85025; 87040; 87086; 96361; 96374; 96375; 99285; G0378; J0696; J1644; J2543; J3370; J3480; Q9967; A9537; C9898; J0360; J2060; J2805; J3475; J7030; J7050

== ENCOUNTER 2021-07-03 12:41 | Emergency (ER) | payer MEDICARE, OTHER ==
[~2021-07-03] VITALS: Ht 190.5 cm; Wt 62.2 kg
[~2021-07-03 12:41] MED LIST changes: +AMOX1TAB12 PO; +CARV6.2512 PO; -FOLI-17 PO; +FOLI1TAB32 PO; +MAGN400T50 PO; +MULT-484 PO; +ONDA4TAB13 PO; +POTA8CAP20 PO; +losartan
--- NOTE | 2021-07-03 13:42 | NUR ---
law firm consultant: Pt ambulatory to room from lobby at this time.
[2021-07-03 15:18] VITALS: BP 115/69
--- NOTE | 2021-07-03 15:19 | NUR ---
PT REC'VD DISCHARGE INSTRUCTIONS AND EDUCATION. PT HAD NO FURTHER QUESTIONS. PT AMBULATED WITH WALKER TO DC AREA WITH SPOUSE BESIDE.
== END 2021-07-03 15:30 | disposition home or self-care (01) ==
LOC: ED 15:00
DX: B02.9 Zoster without complications (principal); I10 Essential (primary) hypertension; F17.210 Nicotine dependence, cigarettes, uncomplicated
CPT/HCPCS: 99283